=== PATIENT | female | born 1940 | race Caucasian/White ===

== ENCOUNTER 2017-08-14 16:22 | Emergency (ER) | payer OTHER ==
[2017-08-14 17:30] LABS: % IMMATURE GRANULYOCYTES 0.3 % (0.0-1.1); ABSOLUTE IMMATURE GRANULOCYTES 0.02 10^3/uL (0.00-0.10); ADD DIFF? NO; ADD MORPH? NO; ADD SCAN? NO; ATYPICAL LYMPHOCYTE FLAG 0 (0-99); FRAGMENT RBC FLAG 0 (0-99); HEMATOCRIT 36.2 % (38.0-47.0); HEMOGLOBIN 12.4 g/dL (12.6-16.3); LEFT SHIFT FLG 0 (0-99); LIPEMIA HEMOLYSIS FLAG 90 (0-99); MEAN CELL HEMOGLOBIN 31.6 pg (27.9-34.1); MEAN CELL HEMOGLOBIN CONCENTR. 34.3 g/dL (32.4-36.7); MEAN CELL VOLUME 92.1 fL (81.5-99.8); PLATELET CLUMPS FLAG 0 (0-99); PLATELET COUNT 203 10^3/uL (150-400); RED BLOOD CELL COUNT 3.93 10^6/uL (4.18-5.33); RED CELL DISTRIBUTION WIDTH 14.1 % (11.5-15.2)
[2017-08-14 17:41] LABS: CALCIUM 9.1 mg/dL (8.5-10.4); POTASSIUM 3.6 mEq/L (3.5-5.2)
[2017-08-14] MEDS ORDERED: ACETAMINOPHEN 500 MG TAB PO ONE (17:56)
[2017-08-14 18:46] VITALS: BP 127/62; PULSE 62; RESP 16; O2SAT 97
--- NOTE | 2017-08-14 19:16 | EDPHY ---
H & P Stated Complaint: Fell over to the floor while twisting in kitchen this am; Pain LUQ/Ribs Time Seen by Provider: 08/14/17 16:40 HPI/ROS: This patient had a mechanical fall in her kitchen with injury to her left lateral ribs at 9:00 a.m. in the morning. She arrived here by private vehicle for further evaluation of the symptoms. She explains that she has a throw rug in the kitchen when she returned from the sink toward different counter her feet got tangled up causing her to fall on her left side. She reports moderate pain to her left lateral ribs with increase in pain with movement and with a deep breath. The patient also reports that she has had right leg pain for the past 2 weeks achy in nature and "wonders if she might have a blood clot ". Regarding the legs she states that she has not noticed any associated swelling but it has been achy without any antecedent injury which is a new symptom for her. ROS: Constitutional: No fatigue or fevers HEENT: No head injury from today's fall. No URI symptoms. Neuro: No numbness tingling or focal weakness. Pulmonary: No cough, shortness of breath or pleuritic pain. Cardiovascular: No heart palpitations. No leg swelling. No chest pain. GI: No abdominal pain associated with her symptoms today. Integumentary: No lacerations abrasions from today's fall 10 point ROS is otherwise negative. Source: Patient Exam Limitations: No limitations - Personal History Current Tetanus/Diphtheria Vaccine: Yes Tetanus Vaccine Date: 2014 - Medical/Surgical History Hx Asthma: No Hx Chronic Respiratory Disease: No Hx Diabetes: No Hx Cardiac Disease: No Hx Renal Disease: No Hx Cirrhosis: No Hx Alcoholism: No Hx HIV/AIDS: No Hx Splenectomy or Spleen Trauma: No Other PMH: tubal ligation,RA ,GERD, SCLERITIS RT EYE, HTN. THYROIDECTOMY, APPY - Family History Significant Family History: No pertinent family hx - Social History Smoking Status: Former smoker Alcohol Use: None Drug Use: None Additional Social History: She lives with her in a private home. - Physical Exam Exam: General Appearance: Alert, no distress. Eyes: Pupils equal and round no pallor or injection. ENT, Mouth: Mucous membranes moist. Respiratory: The patient has fine rales at the left base that clear with deep breaths. Otherwise clear to auscultation. She has left lateral rib tenderness between the 5th and 7th rib region without crepitance. She does have mild lateral rib pain with anterior sternal compression in addition. Cardiovascular: Regular rate and rhythm. No murmur gallop or rub. She maintains symmetric pulses in bilateral lower extremities and has no significant edema to the right leg. Gastrointestinal: Abdomen is soft and nontender, no masses, bowel sounds normal. Neurological: GCS of 15 without focal deficits. Skin: Warm and dry, no rashes. Musculoskeletal: Neck is supple nontender. Extremities-atraumatic normal except for right leg Right leg: Patient has right calf tenderness-moderate. No ankle swelling or tenderness. No knee swelling or tenderness. Psychiatric: Mood and affect are normal DIFFERENTIAL DIAGNOSIS: After history and physical exam differential diagnosis was considered for rib contusion, fractured rib, pulmonary contusion, pneumothorax, hemothorax, leg strain, leg cramps, DVT Constitutional: Initial Vital Signs Temperature (C) 37.3 C 08/14/17 16:33 Heart Rate 69 08/14/17 16:33 Respiratory Rate 20 08/14/17 16:33 Blood Pressure 139/82 H 08/14/17 16:33 O2 Sat (%) 98 08/14/17 16:33 O2 Delivery Mode Room Air Allergies/Adverse Reactions: cephalexin monohydrate [From Keflex] Allergy (Verified 08/14/17 16:41) Diarrhea codeine [Codeine] Allergy (Verified 08/14/17 16:41) Vomiting Home Medications: Medication Instructions Recorded ASPIRIN 08/14/17 Estrace 08/14/17 Fish Oil Concentrate Softgel 08/14/17 Folic Acid 08/14/17 Levothyroxine 08/14/17 MAGNESIUM 08/14/17 Methocarbamol [Robaxin 750 mg (*)] 750 - 1,500 mg PO QID PRN #30 tab 08/14/17 Methotrexate 08/14/17 Moexipril/Hydrochlorothiazide 08/14/17 Omeprazole 08/14/17 Vitamin D3 08/14/17 Medical Decision Making - Diagnostics Imaging Results: Two view chest x-ray: Negative for rib fracture, pneumothorax or hemothorax by my interpretation Doppler ultrasound of right lower extremity is read as negative for DVT by the radiologist whom I spoke Imaging: I viewed and interpreted images myself ED Course/Re-evaluation: Labs: CBC is normal the exception of minimal anemia, metabolic panel is normal. D-dimer is normal Patient is treated with Tylenol p.o.. I advised against using ibuprofen or other NSAIDs given her methotrexate which she states she still 50 mg once a peak -a fairly high dose. Explain interaction between ibuprofen and methotrexate. The patient reports having a feeling of some muscle spasm intermittently and I agreed to provide a methocarbamol script as a muscle relaxant. After workup, patient's findings are consistent with chest wall contusion versus nondisplaced rib fracture and likely calf strain or cramps. We ruled out pneumothorax, hemothorax, no DVT and no other concerning findings. Time discharge patient is ambulatory without significant complaints. She understands the plan follow up with primary care physician for any ongoing symptoms will return for any significant worsening despite the treatment plan. - Data Points Laboratory Results: Laboratory Results 08/14/17 17:25 08/14/17 17:25 Medications Given: Discontinued Medications Acetaminophen (Tylenol) 1,000 mg PO EDNOW ONE Stop: 08/14/17 17:57 Last Admin: 08/14/17 18:02 Dose: 1,000 mg Departure - Departure Disposition: Home, Routine, Self-Care Clinical Impression: Chest wall contusion, Leg pain, right Condition: Good Instructions: Contusion in Adults (ED), Leg Pain (ED) Additional Instructions: Diagnoses: 1. Rib contusion chest/chest wall contusion 2. Leg pain your chest x-ray tonight reveals no rib fractures, collapsed lung or other significant abnormalities. Your ultrasound of your leg shows no blood clot. Plan: Tylenol for pain as needed. Methocarbamol in addition if needed for muscle spasm feeling. Continue your other medications. Gentle leg stretches each day as described. Your chest wall pain should improve over the next 5 to the 14 days. Follow up with your primary care physician for any ongoing symptoms. Return for any significant worsening of her symptoms despite the treatment plan. Referrals: Ar Crowder MD [Primary Care Provider] - As per Instructions Prescriptions: Methocarbamol [Robaxin 750 mg (*)] 750 - 1,500 mg PO QID PRN #30 tab PRN Reason: Muscle Spasms
[2017-08-14 19:38] VITALS: TEMP 97.9
== END 2017-08-14 19:40 | disposition home or self-care (01) ==
LOC: CED 16:22
DX: S89.91XA Unspecified injury of right lower leg, initial encounter (principal); S20.219A Contusion of unspecified front wall of thorax, initial encounter; I10 Essential (primary) hypertension; Z87.891 Personal history of nicotine dependence; Z79.82 Long term (current) use of aspirin; W18.39XA Other fall on same level, initial encounter; Y92.000 Kitchen of unspecified non-institutional (private) residence as the place of occurrence of the external cause
CPT/HCPCS: 71020-PO; 80048-PO; 85025-PO; 85378-PO; 93971-PO

== ENCOUNTER → 2017-11-23 | Outpatient (CLI) | payer OTHER, MEDICARE | LOC: FIMAGING 11:55 | DX: Z12.31 Encounter for screening mammogram for malignant neoplasm of breast (principal); Z80.3 Family history of malignant neoplasm of breast ==

== ENCOUNTER → 2018-07-07 | Outpatient (CLI) | payer OTHER, MEDICARE | LOC: BHLMT 14:00 | PROVIDERS: ATTEND Internal Medicine Cardiovascular Disease | DX: R06.02 Shortness of breath (principal); I10 Essential (primary) hypertension | CPT/HCPCS: 93306-PO ==

== ENCOUNTER 2018-08-03 09:45 | Observation (INO) | payer OTHER, MEDICARE ==
[2018-08-03] MEDS ORDERED: ASPIRIN 81 MG CHEWABLE TAB PO ONE (10:02)
[2018-08-03 10:13] LABS: PLATELET COUNT 218 10^3/uL (150-400)
--- NOTE | 2018-08-03 10:30 | EDPHY ---
HPI/HX/ROS/PE/MDM Narrative: CHIEF COMPLAINT: Chest pain HISTORY OF PRESENT ILLNESS: This patient is a 77 year old female with history of hypertension, GERD, rheumatoid arthritis. She presents today complaining of chest pain. Around 4am this morning, she woke to use the restroom, and noted a chest discomfort which she describes as a "pulling" sensation. This does not radiate. Severity of discomfort is about 5/10, but occasionally as high as 8/10. She denies associated lightheadedness, palpitations, shortness of breath. After using the restroom, she was watching television and began to feel some urgency to have a bowel movement. She had several followed by an episode of diarrhea. Additionally , she endorses urinary urgency throughout the preceding week and tried Azo at home for relief. She denies fever or hematuria. She does mention that she has history of GERD, but her current chest discomfort is different from this and more severe. No fever, chills, shortness of breath, palpitations, vomiting, headache, lightheadedness. She endorses recent pulmonary evaluation with Dr. Okeefe and recent echo at [facility] with Dr. Siddiqi. Patient denies exposure to ill contacts with similar symptoms. She notes her has had recent UTIs, cultures positive for e-coli. REVIEW OF SYSTEMS: A comprehensive 10 system review of systems is otherwise negative aside from elements mentioned in the history of present illness and medical decision making. PAST MEDICAL HISTORY: Hypertension (Lisinopril). GERD. Tubal ligation. Rheumatoid arthritis. Appendectomy. Thyroidectomy. SOCIAL HISTORY: Granddaughter at bedside. . Retired. Lives in [place]. VITAL SIGNS: Reviewed by me GENERAL: Well-developed, well-nourished, resting comfortably in no respiratory distress. HEENT: Atraumatic. Eyes: No icterus, no injection. Mouth: moist mucous membranes. No erythema or lesions. Neck: supple with no adenopathy. LUNGS: Clear to auscultation bilaterally, no wheezes, rhonchi or rales. CARDIAC: Regular rate and rhythm, no rubs, murmurs or gallops. ABDOMEN: Soft, nontender, nondistended, bowel sounds normal. BACK: Left flank tenderness. EXTREMITIES: No trauma. No edema. Range of motion is normal throughout. NEURO: Alert and oriented, grossly nonfocal. SKIN: Warm and dry, no rash. PSYCHIATRIC: Normal mentation, no agitation. Portions of this note were transcribed by a medical cash poster. I personally performed a history, physical exam, medical decision making, and confirmed accuracy of information the transcribed note. ED Course: 77 y/o female presents with chest pain onset this morning at 4:00am. She endorses recent pulmonary evaluation with Dr. Okeefe and recent echo at [facility] with Dr. Siddiqi. Plan for EKG, CXR, labs including CBC, chemistries, troponin, D-dimer. 10:26 3 PO 81 mg ASA administered. The patient takes daily 81mg ASA, and already had her dose this morning. 12-LEAD EKG: Please see the full report in [facility]. My interpretation: Sinus rhythm, PAC. Labs largely unremarkable. D-dimer elevated at 0.76, but this is within normal limits for age-adjusted d-dimer criteria. 12:[address] Trinidad, hearing aid fitter. Patient had a normal echocardiogram. There is no stress test or recent coronary artery evaluation that I can find. Patient evidently has been presenting intermittently for chest discomfort for year. Plan to admit for chest pain, nausea. 12:38 Spoke with hospitalist service. Dr. Mcconnell accepts admission. MDM: After history and physical examination, the differential for chest pain was considered, including but not limited to, myocardial ischemia, acute coronary syndrome, pulmonary embolus, chest wall pain, gastrointestinal source, pleural inflammation and pulmonary infectious causes. - Data Points Imaging Results: CXR Impression: Stable negative chest. Tortuous thoracic aorta. Thoracic kyphosis. Dictated By: George Coppola MD Imaging: I viewed and interpreted images myself Laboratory Results: Laboratory Results 08/03/18 10:05 08/03/18 10:05 Medications Given: Discontinued Medications Al Hydroxide/Mg Hydroxide (Maalox Susp) 30 ml PO ONCE ONE Stop: 08/03/18 11:27 Last Admin: 08/03/18 12:00 Dose: 30 ml Al Hydroxide/Mg Hydroxide (Maalox Susp) 30 ml PO PRN PRN PRN Reason: GI Distress Stop: 01/30/19 14:32 Last Admin: 08/03/18 17:04 Dose: 30 ml Aspirin (Aspirin) 243 mg PO EDNOW ONE Stop: 08/03/18 10:03 Last Admin: 08/03/18 10:25 Dose: 243 mg Aspirin (Aspirin) 81 mg PO DAILY YELITZA Stop: 01/31/19 08:59 Last Admin: 08/04/18 09:36 Dose: 81 mg Calcium Carbonate (Tums) 500 mg PO TID PRN PRN Reason: Indigestion Stop: 01/30/19 14:17 Last Admin: 08/03/18 14:33 Dose: 500 mg Cholecalciferol (Vitamin D) 2,000 units PO DAILY YELITZA Stop: 01/31/19 08:59 Last Admin: 08/04/18 09:36 Dose: 2,000 units Cyclosporine (Restasis) 1 drop EACHEYE BID YELITZA Stop: 01/30/19 20:59 Last Admin: 08/03/18 20:32 Dose: Not Given Folic Acid (Folic Acid) 1 mg PO DAILY YELITZA Stop: 01/31/19 08:59 Last Admin: 08/04/18 09:37 Dose: 1 mg Hyoscyamine Sulfate (Levsin, Hyomax-Sl) 0.25 mg PO ONCE ONE Stop: 08/03/18 11:27 Last Admin: 08/03/18 11:58 Dose: 0.25 mg Hyoscyamine Sulfate (Levsin, Hyomax-Sl) 0.25 mg PO PRN PRN PRN Reason: GI upset Stop: 01/30/19 14:32 Last Admin: 08/03/18 17:03 Dose: 0.25 mg Levothyroxine Sodium (Synthroid) 62.5 mcg PO DAILY06 YELITZA Stop: 01/31/19 05:59 Last Admin: 08/04/18 04:50 Dose: 62.5 mcg Lidocaine (Lidocaine 2% Viscous) 15 ml PO ONCE ONE Stop: 08/03/18 11:27 Last Admin: 08/03/18 12:00 Dose: 15 ml Lidocaine (Lidocaine 2% Viscous) 15 ml PO ONCE ONE Stop: 08/03/18 14:33 Last Admin: 08/03/18 17:04 Dose: 15 ml Lisinopril (Zestril) 10 mg PO DAILY YELITZA Stop: 01/31/19 08:59 Last Admin: 08/04/18 09:36 Dose: 10 mg Magnesium Oxide (Magnesium Oxide) 400 mg PO DAILY YELITZA Stop: 01/31/19 08:59 Last Admin: 08/04/18 09:37 Dose: 400 mg Ondansetron HCl (Zofran) 4 mg IVP EDNOW ONE Stop: 08/03/18 11:27 Last Admin: 08/03/18 11:55 Dose: 4 mg Pantoprazole Sodium (Protonix) 40 mg IVP EDNOW ONE Stop: 08/03/18 11:27 Last Admin: 08/03/18 12:00 Dose: 40 mg Pantoprazole Sodium (Protonix) 40 mg PO DAILY YELITZA Stop: 01/31/19 08:59 Last Admin: 08/04/18 09:37 Dose: 40 mg Point of Care Test Results: Chemistry 08/03/18 10:09 POC Troponin I 0.01 ng/mL ng/mL (0.00-0.08) General Time Seen by Provider: 08/03/18 09:56 Initial Vital Signs: Initial Vital Signs Temperature (C) 37.1 C 08/03/18 09:48 Heart Rate 73 08/03/18 09:48 Respiratory Rate 18 08/03/18 09:48 Blood Pressure 172/101 H 08/03/18 09:48 O2 Sat (%) 95 08/03/18 09:48 O2 Delivery Mode Room Air Allergies/Adverse Reactions: cephalexin monohydrate [From Keflex] Allergy (Verified 08/03/18 09:48) Diarrhea codeine [Codeine] Allergy (Verified 08/03/18 09:48) Vomiting Home Medications: Medication Instructions Recorded Aspirin [Aspirin 81mg (*)] 81 mg PO DAILY 08/14/17 Cholecalciferol Vit D3 [Vitamin D3 2,000 units PO DAILY 08/14/17 2000 units tab (OTC)] Folic Acid [Folic Acid 1 MG (*)] 1 mg PO DAILY 08/14/17 Herbals/Supplements -Info Only 1 ea PO DAILY 08/14/17 Levothyroxine [Synthroid 125 mcg 62.5 mcg PO DAILY06 08/14/17 (*)] Magnesium Oxide [Magnesium Oxide 400 mg PO DAILY 08/14/17 400 mg (*)] Methotrexate Sodium [Rheumatrex] 5 mg PO WE 08/14/17 Ibuprofen [Motrin (*)] 200 mg PO DAILY PRN 08/03/18 Lisinopril [Zestril 10 mg (*)] 10 mg PO DAILY 08/03/18 Omeprazole 20 mg PO DAILY 08/03/18 cycloSPORINE 0.05% [Restasis Opht 1 drop EACHEYE BID 08/03/18 Drops(*)] Calcium Carbonate [Tums 500MG (*)] 500 mg PO TID PRN tab.chew 08/04/18 Departure - Departure Disposition: [facility] Inpatient Acute Clinical Impression: Nausea Chest pain Qualifiers: Chest pain type: unspecified Qualified Code(s): R07.9 - Chest pain, unspecified Condition: Fair Report Scribed for: Melanie Roberto Report Scribed by: Sandra Retana Date of Report: 08/03/18 Time of Report: 14:25
[2018-08-03] MEDS ORDERED: MAG HYDROX/AL HYDROX/SIMETH 30 ML UDCUP PO ONE (11:26)
[2018-08-03] MEDS ORDERED: LIDOCAINE 2% VISCOUS 15 ML UDCUP PO ONE ×2 (11:26→14:32)
[2018-08-03] MEDS ORDERED: ONDANSETRON 4 MG/2 ML VIAL IVP ONE (11:26)
[2018-08-03] MEDS ORDERED: PANTOPRAZOLE SODIUM 40 MG VIAL IVP ONE (11:26)
[2018-08-03] MEDS ORDERED: HYOSCYAMINE SULFATE 0.125 MG TAB PO ONE (11:26)
[2018-08-03] MEDS ORDERED: ONDANSETRON DISINTEGRATING 4 MG TAB PO PRN (13:03)
[2018-08-03] MEDS ORDERED: ACETAMINOPHEN 325 MG TAB PO PRN (13:03)
[2018-08-03] MEDS ORDERED: CALCIUM CARBONATE 500 MG CHEWABLE TAB PO PRN (14:18)
[2018-08-03] MEDS ORDERED: HYOSCYAMINE SULFATE 0.125 MG TAB PO PRN (14:33)
[2018-08-03] MEDS ORDERED: MAG HYDROX/AL HYDROX/SIMETH 30 ML UDCUP PO PRN (14:33)
--- NOTE | 2018-08-03 15:07 | GHP ---
DATE OF ADMISSION: 08/03/2018 CHIEF COMPLAINT: Chest discomfort. HISTORY OF PRESENT ILLNESS: A 77-year-old female accompanied by her granddaughter, presenting with chest pain. She has a history of scleritis, hypertension, hyperlipidemia. At 4:00 a.m. this morning while in bed, she awoke to use the restroom. She noticed a pulling sensation across her upper chest. It did not radiate. There was no associated nausea, vomiting, numbness or tingling. She then sat up and watched television. She developed urgency to have a bowel movement and had several episodes of diarrhea. Has had a urinary urgency throughout this past week. It was difficult to obtain a good history. Patient is a poor historian. Per granddaughter, she appears more comfortable now after GI cocktail in the emergency room, though the patient cannot fully tell me if improved or not. She has had increased stress over the last 2 weeks as her was recently hospitalized. REVIEW OF SYSTEMS: I completed a 10-point review of systems, negative except as noted in HPI. PAST MEDICAL HISTORY: Scleritis, thyroid cancer, mild pulmonary hypertension, GERD, migraines, hyperlipidemia. PAST SURGICAL HISTORY: Thyroid resection, appendectomy, breast reduction, nose reduction, tubal ligation. CTA 05/26/2018, negative for pulmonary embolism showed subpleural cysts. Mild pulmonary hypertension with RVSP 45 mmHg. Diastolic heart failure. EF 61%. Mild mitral regurgitation. FAMILY HISTORY: Father with coronary disease, COPD. ALLERGIES: Codeine, Keflex. HOME MEDICATIONS: Cyclosporin drops, levothyroxine 62.5 mcg daily, ibuprofen, herbal supplement, aspirin 81 mg, omeprazole 20 daily, methotrexate 5 mg every Wednesday, Mag oxide, lisinopril 10 mg daily, vitamin D3. PHYSICAL EXAM: VITAL SIGNS: Temperature admission 172/101, now 149/79, temperature is afebrile, heart rate in the 70s, respirations 18, 92% on room air. GENERAL: Elderly female lying in bed, no acute distress. HEENT: PERRLA. Moist mucous membranes CV: Regular rate and rhythm. +1 ankle edema. No murmurs, gallops, or rubs. LUNGS: Clear. ABDOMEN: Mild epigastric tenderness (the patient can endorse that this is the same pain she had). : No suprapubic tenderness. MUSCULOSKELETAL: 5/5 upper and lower extremity strength. NEURO: 2 through 12 intact. PSYCH: Alert and oriented x3. Anxious , perseverates, does not answer questions completely. LABS: WBC 9, hemoglobin 13, hematocrit 38, platelets 218. D-dimer is 0.76. Sodium 141, potassium 3.8, chloride 106, carbon dioxide 27, BUN 22, creatinine 0.9, glucose 93, calcium 9.8, total bilirubin 0.7, AST 23, ALT 23, lipase 305, and troponin 0.01. Total protein 7.4, albumin 4.3. EKG is personally reviewed by me, ST flattening in lead 2, 3 AVF, V3 (this is similar to prior). Chest x- ray personally reviewed by me. No effusion or opacity. Abdominal ultrasound, normal ultrasound. ASSESSMENT/PLAN: 1. Chest discomfort: Broad differential as the patient is not the best historian. Her heart score is 3 based on age, hypertension, hyperlipidemia. Initial EKG and troponin negative for ischemia. She has a mildly elevated D- dimer, but that is normal when age adjusted. She recently had a CTA 05/26 that was negative for pulmonary embolism. Musculoskeletal, gastroesophageal reflux disease, or infection are a possibility. No evidence of pneumonia. Check a viral PCR given dry cough and acute diarrhea. Monitor on telemetry. Repeat troponin EKG. May consider an exercise treadmill in the morning. Blood pressure was elevated at admission, which may have contributed. This is improved. 2. Hypertension: Hydrochlorothiazide recently discontinued. She is currently on lisinopril. This may need to be uptitrated. Per clinic notes, blood pressures has been greater than 140s last 2 visits. 3. Hyperlipidemia. She is not on a statin. We will check lipids. 4. Scleritis. Methotrexate every Wednesday. 5. History of thyroid cancer, status post resection, on levothyroxine. 6. Gastroesophageal reflux disease. Continue proton pump inhibitor. 7. Diet: Cardiac. 8. Deep venous thrombosis prophylaxis: Lovenox. 9. Fever: UA,, resp PCR, blood cx pending. No PNA. May be viral gastroenteritis with diarrhea DISPOSITION: Observation and admission given acute chest pain warranting telemetry, serial troponin, possible stress test in the morning. /[id number]/MODL MTDD
--- NOTE | 2018-08-03 16:06 | CPEKG ---
Test Reason : OPEN Blood Pressure : / mmHG Vent. Rate : 078 BPM Atrial Rate : 078 BPM P-R Int : 138 ms QRS Dur : 091 ms QT Int : 385 ms P-R-T Axes : 048 -38 -29 degrees QTc Int : 439 ms Sinus rhythm Atrial premature complex Probable left atrial enlargement Left axis deviation Borderline T abnormalities, inferior leads Confirmed by Melanie Roberto ([id number]) on 08/03/2018 4:05:49 PM Referred By: Confirmed By:Melanie Roberto
--- NOTE | 2018-08-03 19:14 | CPEKG ---
Test Reason : OPEN Blood Pressure : / mmHG Vent. Rate : 078 BPM Atrial Rate : 078 BPM P-R Int : 138 ms QRS Dur : 083 ms QT Int : 390 ms P-R-T Axes : 027 -33 -09 degrees QTc Int : 445 ms Sinus rhythm Inferior infarct, old Minimal ST elevation, anterior leads Confirmed by Betty Marcos ([id number]) on 08/03/2018 7:14:37 PM Referred By: Confirmed By:Betty Marcos
[2018-08-03] MEDS ORDERED: cycloSPORINE 0.05% 30 DROPERETTE/BOX EACHEYE SCH (21:00)
[2018-08-04] MEDS ORDERED: LEVOTHYROXINE 125 MCG TAB PO SCH (06:00)
[2018-08-04 07:33] VITALS: BP 129/71
[2018-08-04] MEDS ORDERED: Herbals/Supplements -Info Only PO SCH (09:00)
[2018-08-04] MEDS ORDERED: ASPIRIN 81 MG CHEWABLE TAB PO SCH (09:00)
[2018-08-04] MEDS ORDERED: FOLIC ACID 1 MG TAB PO SCH (09:00)
[2018-08-04] MEDS ORDERED: PANTOPRAZOLE SODIUM 40 MG TAB PO SCH (09:00)
[2018-08-04] MEDS ORDERED: MAGNESIUM OXIDE 400 MG TAB PO SCH (09:00)
[2018-08-04] MEDS ORDERED: LISINOPRIL 10 MG TAB PO SCH (09:00)
[2018-08-04] MEDS ORDERED: CHOLECALCIFEROL VIT D3 2,000 UNITS TAB/CAP PO SCH (09:00)
[2018-08-04] MEDS ORDERED: IOPAMIDOL (ISOVUE 370) 100 ML BTL IV ONE (09:21)
--- NOTE | 2018-08-04 11:31 | GDS ---
DISCHARGE DIAGNOSES: 1. Atypical chest pain. 2. Pulmonary nodule. 3. Mild pulmonary hypertension. 4. Gastroesophageal reflux disease. 5. Scleritis. 6. History of thyroid cancer. 7. Hyperlipidemia. 8. Hypertension. 9. Fever. HISTORY OF PRESENT ILLNESS: A 77-year-old female with scleritis, hypertension, hyperlipidemia, presented with her granddaughter with atypical chest pain. She awoke 4 o'clock in the morning while in bed with a band-like pulling chest pain upper chest. It did not radiate. There was no associated shortness of breath, nausea, vomiting, or tingling in her hands. She then developed urgency, did have a bowel movement, had several episodes of diarrhea. She complained of urinary urgency through the past week. She was a difficult historian. She does shop and get out and walk without chest pain or shortness of breath. HOSPITAL COURSE BY PROBLEM: 1. Atypical chest pain: likely GERD; had relief with GI cocktail. Persistent pleuritic chest pain with inspiration; negative CTA. EKG and trops negative for ischemia. Outpatient cardiac stress test. 2. Hypertension. HCTZ recently discontinued. Monitor BP at home; may need increased Lisinopril dose. 3. Hyperlipidemia. Lipids at goal. She is not on a statin. 4. Scleritis, methotrexate. 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 5. History of thyroid cancer status post resection. Levothyroxine. 6. GERD. PPI. P.r.n. Tums. 7. Fever: unclear.Could be gastroenteritis with diarrhea. UA, resp PCR, PNA normal. Blood cultures negative. 8. Pulmonary nodule: repeat CT 1 year 9. Mild PAH: primary [employer], Dr. Okeefe DISPOSITION: Patient is stable for discharge home. FOLLOWUP: 1. Primary care physician for referral to GI doctor. 2. Consider outpatient treadmill test. 3. Repeat CT chest for pulmonary nodule in 1 year. 4. Monitor blood pressure. Consider up titration of lisinopril. 5. Blood cultures pending PHYSICAL EXAMINATION: VITALS: Today, temperature 37.1, blood pressure 129/71, heart rate in the 60s, respiratory rate 14, 94% on room air. GENERAL: She is well appearing, no acute distress. HEENT: PERRLA. Moist mucous membranes. CV : Regular rate and rhythm. LUNGS: Clear. No crackles or wheezing. ABDOMEN: Mild epigastric tenderness. Some component of reproducibility. : No suprapubic tenderness. MUSCULOSKELETAL: 5/5 upper and lower extremity strength. NEURO: 2 through 12 intact. Time spent on discharge greater than 30 minutes at bedside with patient recommending followup plans with her PCP. /[id number]/MODL MTDGrace
--- NOTE | 2018-08-04 11:33 | ASDISCHSUM ---
Discharge Information Plan Status:Home with No Needs Medically Cleared to Leave:08/03/2018 Discharge Date:08/03/2018 CM D/C Disposition:Home, Routine, Self-Care ADT D/C Disposition:Home, Routine, Self-Care Projected Discharge Date:08/03/2018 Transportation at D/C:Self Discharge Delay Reason: Follow-Up Date:08/03/2018 Discharge Slot: Final Diagnosis: Placement Information Patient Contact Information Contact Name:LADAN Relationship: Address:[address] City:[place] Alternate Phone: [facility]/Zip Code:[place] [address] Email: Financial Information Financial Class:Medicare Primary Plan Desc:MEDICARE OUTPATIENT Primary Plan Number:[id number] Secondary Plan Desc:BRITNEYP/MDR SUPPLEMENT Secondary Plan Number:[id number] Assessment Information LACE LACE Length of stay for Answers: Less than 1 day current admission Acuity / Level of Answers: No Care: Did the patient have an inpatient admission? Comorbidities - select Answers: Any tumor (including all that apply lymphoma or leukemia) Chronic pulmonary disease Other Notes: scleritis, GERD, hyperl ipi demia, migraines # of Emergency department Answers: 1-2 visits in the last 6 months Score: 6 Date Signed: 08/04/2018 11:33 AM Electronically Signed By:Lou Mcneil RN Intervention Information Intervention Type:*OSCAR-Signed Date of Service:08/04/2018 11:31 AM Patient Type:Observation Staff Member:BRENDA Mcneil Hillary Hours: Discipline: Severity: Comment:
== END 2018-08-04 13:25 | disposition home or self-care (01) ==
LOC: F2W 13:30
PROVIDERS: ADMIT Internal Medicine; ATTEND Internal Medicine
DX: R07.89 Other chest pain (principal); R50.9 Fever, unspecified; R91.1 Solitary pulmonary nodule; I27.20 Pulmonary hypertension, unspecified; I10 Essential (primary) hypertension; K21.9 Gastro-esophageal reflux disease without esophagitis; E78.5 Hyperlipidemia, unspecified; H15.009 Unspecified scleritis, unspecified eye; R19.7 Diarrhea, unspecified; R39.15 Urgency of urination; R05 Cough; R10.11 Right upper quadrant pain; M06.9 Rheumatoid arthritis, unspecified; E89.0 Postprocedural hypothyroidism; Z85.850 Personal history of malignant neoplasm of thyroid; Z79.899 Other long term (current) drug therapy; Z79.82 Long term (current) use of aspirin
CPT/HCPCS: 71046; 71275; 76705; 93005; 96374; 96375; 99285; G0378; J2405; Q9967; 84484-PO

== ENCOUNTER → 2019-03-10 | Outpatient (CLI) | payer OTHER, MEDICARE | LOC: CIMAGING 13:04 ==